=== PATIENT | female | born 1990 | race Two or more races ===

== ENCOUNTER 2020-01-11 00:43 | Emergency (ER) | payer MEDICAID ==
[~2020-01-11] VITALS: Ht 162.6 cm; Wt 100.7 kg
[2020-01-11 01:05] VITALS: BP 125/80
== END 2020-01-11 06:01 | disposition home or self-care (01) ==
LOC: ER 00:45
DX: T19.2XXA Foreign body in vulva and vagina, initial encounter (principal); E11.9 Type 2 diabetes mellitus without complications; F17.210 Nicotine dependence, cigarettes, uncomplicated; X58.XXXA Exposure to other specified factors, initial encounter; Y93.89 Activity, other specified; Y92.89 Other specified places as the place of occurrence of the external cause; Y99.8 Other external cause status